=== PATIENT | female | born 1955 | race Caucasian/White ===

== ENCOUNTER 2021-10-23 11:41 | Inpatient (IN) | payer MEDICARE, OTHER ==
[~2021-10-23] VITALS: Ht 172.7 cm; Wt 70.0 kg
[2021-10-23] MEDS ORDERED: LISI20TA33 PO (11:53)
[2021-10-23] MEDS ORDERED: HYDR-3490 PO (11:53)
[2021-10-23] MEDS ORDERED: POTA1TAB23 PO (11:53)
[2021-10-23] MEDS ORDERED: SOTA80TA32 PO (12:41)
[2021-10-23 12:49] LABS: BASO # 0.1 10^3/uL (0.0-0.2); BASO % 0.9 % (0.0-1.0); EOS % 0.7 % (0.0-3.0); HEMOGLOBIN 14.5 g/dl (12.0-15.5); LYMPH # 1.2 10^3/uL (1.5-5.0); LYMPH % 22.3 % (24.0-44.0); MEAN CORPUSCULAR HEMOGLOBIN 31.7 pg (27.0-33.0); MEAN CORPUSCULAR HGB CONC 35.4 g/dl (32.0-36.5); MEAN CORPUSCULAR VOLUME 89.5 fl (80.0-96.0); MONO # 0.8 10^3/uL (0.0-0.8); MONO % 14.4 % (2.0-8.0); NEUTROPHILS # 3.4 10^3/uL (1.5-8.5); NEUTROPHILS % 61.5 % (36.0-66.0); PLATELET COUNT, AUTOMATED 282 10^3/uL (150-450); RED BLOOD COUNT 4.58 10^6/uL (4.00-5.40); WHITE BLOOD COUNT 5.6 10^3/uL (4.0-10.0)
[2021-10-23] MEDS ORDERED: DIGOXIN INJ 0.5 MG/2 ML AMP (J1160) IV STA ×3 (12:50→21:41)
[2021-10-23 13:48] LABS: BLOOD UREA NITROGEN 12 MG/DL (7-18); CALCIUM LEVEL 9.5 MG/DL (8.8-10.2); CARBON DIOXIDE LEVEL 28 MEQ/L (21-32); CHLORIDE LEVEL 95 MEQ/L (98-107); CREATININE FOR GFR 0.92 MG/DL (0.55-1.30); GLOMERULAR FILTRATION RATE > 60.0 (>45); GLUCOSE, FASTING 94 MG/DL (70-100); POTASSIUM SERUM 3.4 MEQ/L (3.5-5.1); SODIUM LEVEL 131 MEQ/L (136-145)
[2021-10-23] MEDS ORDERED: atenoloL 25 MG TAB PO ONE ×2 (15:05→17:05)
[2021-10-23] MEDS ORDERED: atenoloL 50 MG TAB PO ONE ×2 (19:55→21:45)
[2021-10-23] MEDS ORDERED: FUROSEMIDE 20MG/2ML VIAL (J1940) IV ONE (21:45)
[2021-10-23] MEDS ORDERED: POTASSIUM CHLORIDE 10MEQ SR TABLET PO ONE (21:45)
[2021-10-23 22:20] LABS: FREE T4 1.47 NG/DL (0.76-1.46)
[2021-10-23] MEDS ORDERED: RIVAROXABAN 20MG TAB (XARELTO) PO ONE (23:50)
[2021-10-24 01:24] LABS: RSV AMPLIFICATION NEGATIVE (NEGATIVE)
[2021-10-24] MEDS ORDERED: HYDR-3490 PO (02:17)
[2021-10-24] MEDS ORDERED: POTA-149 PO (02:17)
[2021-10-24] MEDS ORDERED: LISI20TA33 PO (02:17)
[2021-10-24] MEDS ORDERED: [UNRECOGNIZED DRUG - CODE] PO (02:17)
[2021-10-24] MEDS ORDERED: SOTA80TA2 PO (02:17)
[2021-10-24] MEDS ORDERED: HOME MED LIST COMPLETE! XX SCH (02:25)
[2021-10-24] MEDS ORDERED: SOTALOL HCL 80 MG TAB PO STA (02:58)
[2021-10-24] MEDS ORDERED: POTASSIUM CHLORIDE 10MEQ SR TABLET PO STA (02:58)
[2021-10-24] MEDS ORDERED: DIGOXIN INJ 0.5 MG/2 ML AMP (J1160) IV STA (02:58)
[2021-10-24 03:16] VITALS: BP 149/98
[2021-10-24 04:05] VITALS: BP 137/107
[2021-10-24] MEDS ORDERED: DIGOXIN INJ 0.5 MG/2 ML AMP (J1160) IV ONE ×2 (07:00→09:00)
[2021-10-24 07:35] VITALS: BP 120/82
[2021-10-24 07:40] LABS: INR 1.59; PROTHROMBIN TIME 19.4 SECONDS (12.7-14.5)
[2021-10-24 07:41] LABS: PARTIAL THROMBOPLASTIN TIME 47.4 SECONDS (25.9-37.0)
[2021-10-24 08:07] LABS: ALBUMIN 3.9 GM/DL (3.2-5.2); ALT/SGPT 48 U/L (12-78); BLOOD UREA NITROGEN 11 MG/DL (7-18); CALCIUM LEVEL 9.6 MG/DL (8.8-10.2); CARBON DIOXIDE LEVEL 23 MEQ/L (21-32); CHLORIDE LEVEL 98 MEQ/L (98-107); CREATININE FOR GFR 0.83 MG/DL (0.55-1.30); GLOMERULAR FILTRATION RATE > 60.0 (>45); GLUCOSE, FASTING 93 MG/DL (70-100); POTASSIUM SERUM 4.1 MEQ/L (3.5-5.1); SODIUM LEVEL 130 MEQ/L (136-145); TOTAL PROTEIN 7.1 GM/DL (6.4-8.2)
[2021-10-24 11:22] LABS: OSMOLALITY SERUM 270 MOSM/KG (280-301)
[2021-10-24 11:43] LABS: CORTISOL BASELINE 24.3 UG/DL (4.3-22.4)
[2021-10-24 12:00] VITALS: BP 148/91
[2021-10-24 12:41] LABS: APPEARANCE, URINE MANUAL CLEAR (CLEAR); BILIRUBIN, URINE MANUAL NEGATIVE (NEGATIVE); COLOR, URINE MANUAL YELLOW (YELLOW); GLUCOSE, URINE (UA) MANUAL NEGATIVE (NEGATIVE); KETONE, URINE MANUAL NEGATIVE (NEGATIVE); NITRITE, URINE MANUAL NEGATIVE (NEGATIVE); PROTEIN, URINE MANUAL NEGATIVE (NEGATIVE); SPECIFIC GRAVITY,URINE MANUAL 1.005 (1.002-1.035); UROBILINOGEN, URINE MANUAL NORMAL (NORMAL)
[2021-10-24 12:42] LABS: BLOOD URINE MANUAL NEGATIVE (NEGATIVE); LEUKOCYTE ESTERASE, URINE MAN NEGATIVE (NEGATIVE)
[2021-10-24 12:45] LABS: OSMOLALITY URINE 266 MOSM/KG (50-1400)
[2021-10-24 13:27] LABS: CREATININE,RANDOM URINE 76.2 MG/DL; SODIUM,RANDOM URINE < 10 MEQ/L; UREA NITROGEN RANDOM URINE 371 MG/DL
[2021-10-24 16:00] VITALS: BP 133/80
[2021-10-24] MEDS ORDERED: RIVAROXABAN 20MG TAB (XARELTO) PO SCH (18:00)
[2021-10-24 20:00] VITALS: BP 138/85
[2021-10-24] MEDS: SOTALOL HCL 80 MG TAB PO SCH (21:00)
[2021-10-25] VITALS: BP 135/80
[2021-10-25 04:00] VITALS: BP 128/83
[2021-10-25 05:17] LABS: HEMATOCRIT 41.6 % (36.0-47.0); HEMOGLOBIN 14.8 g/dl (12.0-15.5)
[2021-10-25 05:55] LABS: BLOOD UREA NITROGEN 10 MG/DL (7-18); CARBON DIOXIDE LEVEL 31 MEQ/L (21-32); CHLORIDE LEVEL 98 MEQ/L (98-107); CREATININE FOR GFR 0.88 MG/DL (0.55-1.30); GLOMERULAR FILTRATION RATE > 60.0 (>45); GLUCOSE, FASTING 105 MG/DL (70-100); MAGNESIUM LEVEL 1.8 MG/DL (1.8-2.4); POTASSIUM SERUM 4.5 MEQ/L (3.5-5.1); SODIUM LEVEL 132 MEQ/L (136-145)
[2021-10-25 08:13] VITALS: BP 131/88
[2021-10-25 09:00] VITALS: BP 131/88
[2021-10-25] MEDS: SOTALOL HCL 80 MG TAB PO SCH (09:00)
[2021-10-25] MEDS ORDERED: XARE20TA PO (09:41)
[2021-10-25] MEDS ORDERED: BETA80TA PO (09:41)
[2021-10-25] MEDS ORDERED: DILT30TA PO (09:41)
== END 2021-10-25 11:43 | disposition home or self-care (01) | DRG 309 ==
LOC: M ED 11:41 → M ED INP 10-24 02:12 → M PCU 10-24 03:16
PROVIDERS: ADMIT Internal Medicine; ATTEND Internal Medicine
PROC: B246ZZZ Ultrasonography of Right and Left Heart (ICD-10-PCS; principal; 2021-10-24)
DX: I48.19 Other persistent atrial fibrillation (principal); E87.1 Hypo-osmolality and hyponatremia; E87.6 Hypokalemia; I10 Essential (primary) hypertension; Z20.822 Contact with and (suspected) exposure to COVID-19; Z79.01 Long term (current) use of anticoagulants; Z79.899 Other long term (current) drug therapy